=== PATIENT | female | born 1965 | race Hispanic/Latino ===

== ENCOUNTER 2020-01-01 12:57 | Emergency (ER) | payer BC ==
[2020-01-01] MEDS ORDERED: PREDNISONE 20 MG TABLET ONE (13:14)
== END 2020-01-01 13:42 | disposition home or self-care (01) ==
LOC: EDH 12:57
DX: R21 Rash and other nonspecific skin eruption (principal); T37.5X5A Adverse effect of antiviral drugs, initial encounter; Z72.0 Tobacco use; Y92.89 Other specified places as the place of occurrence of the external cause

== ENCOUNTER 2020-02-04 22:07 | Emergency (ER) | payer BC ==
[2020-02-05] MEDS ORDERED: PREDNISONE 20 MG TABLET ONE (00:14)
[2020-02-05] MEDS ORDERED: DIPHENHYDRAMINE HCL 25 MG CAPSULE ONE (00:15)
== END 2020-02-05 00:45 | disposition home or self-care (01) ==
LOC: EDH 22:07
DX: T78.49XA Other allergy, initial encounter (principal); Z88.0 Allergy status to penicillin; Z72.0 Tobacco use; Z79.899 Other long term (current) drug therapy; X58.XXXA Exposure to other specified factors, initial encounter
CPT/HCPCS: 99283; Q0163